=== PATIENT | female | born 1985 | race African-American/Black ===

== ENCOUNTER 2018-06-16 13:38 | Emergency (ER) | payer OTHER ==
[~2018-06-16] VITALS: Ht 170.2 cm; Wt 90.0 kg
[2018-06-16] MEDS ORDERED: ONDANSETRON HCL 4MG/2ML VIAL IV STA (14:06)
[2018-06-16] MEDS ORDERED: SODIUM CHLORIDE 0.9% 1,000 ML IV ONE (14:06)
[2018-06-16] MEDS ORDERED: LORAZEPAM 2MG/ML CPJ IV STA (14:06)
[2018-06-16] MEDS ORDERED: DIPHENHYDRAMINE 50MG/ML VIAL IV ONE (15:00)
[2018-06-16 15:08] LABS: BASOPHILS % 0.4 % (0.0-2.0); EOSINOPHILS % 0.5 % (0.0-5.0); HEMATOCRIT. 38.5 % (36.0-48.0); HEMOGLOBIN. 12.9 g/dL (12.0-16.0); LYMPHOCYTES % 19.6 % (20.0-50.0); MEAN CORPUSCULAR HEMOGLOBIN 33.5 pg (28.0-32.0); MEAN CORPUSCULAR VOLUME 99.5 fL (81.0-99.0); MEAN PLATELET VOLUME 8.6 fl (7.4-10.4); MONOCYTES % 10.7 % (2.0-8.0); NEUTROPHILS % 68.8 % (40.0-76.0); PLATELET 231 x1000/uL (130-400); RED BLOOD CELL COUNT 3.87 mill/uL (4.2-5.4); RED CELL DISTRIBUTION WIDTH 13.2 % (11.6-14.6)
[2018-06-16 15:15] LABS: CHLORIDE 104 mEq/L (98-107)
[2018-06-16 15:19] LABS: ETHANOL BLOOD < 10 mg/dL
[2018-06-16 15:24] LABS: CREATINE KINASE 307 IU/L (26-192); HCG SCREEN NEGATIVE
[2018-06-16 15:27] LABS: AMMONIA 30 uMol/L (<32)
[2018-06-16 17:42] VITALS: BP 117/63
== END 2018-06-16 17:54 | disposition home or self-care (01) ==
LOC: ER 13:50
DX: G93.40 Encephalopathy, unspecified (principal); G24.9 Dystonia, unspecified; F12.90 Cannabis use, unspecified, uncomplicated; R03.0 Elevated blood-pressure reading, without diagnosis of hypertension; R94.31 Abnormal electrocardiogram [ECG] [EKG]
CPT/HCPCS: 36415; 80053; 80307; 80329; 82140; 82550; 83690; 84443; 84484; 84703; 85025; 93005; 96361; 96374; 96375; 99285; G0482; J1200; J2060; J2405; J7030